=== PATIENT | female | born 1990 | race Caucasian/White ===

== ENCOUNTER 2017-10-08 19:40 | Emergency (ER) | payer MEDICAID ==
[2010-12-28 05:58] VITALS: BMI 22.1
== END 2017-10-08 22:20 | disposition home or self-care (01) ==
LOC: D.ER 19:40
DX: K08.89 Other specified disorders of teeth and supporting structures (principal); K12.2 Cellulitis and abscess of mouth; F98.8 Other specified behavioral and emotional disorders with onset usually occurring in childhood and adolescence